=== PATIENT | male | born 1935 | race Caucasian/White ===

== ENCOUNTER 2019-10-17 03:08 | Inpatient (IN) ==
[2019-10-17] MEDS ORDERED: ASPIRIN CHEW 324 MG PO STA (03:36)
[2019-10-17] MEDS ORDERED: ASPIRIN CHEW 324 MG ONE (03:37)
[2019-10-17 03:47] LABS: Basophils # (auto) 0.01 K/uL (0-0.2); Basophils % (auto) 0.1 %; Eosinophils # (auto) 0.02 K/uL (0-0.5); Eosinophils % (auto) 0.2 %; Hematocrit (blood only) 44.4 % (42-52); Hemoglobin 14.7 g/dL (14.0-18.0); Immature Granulocytes # (auto) 0.02 K/uL (0.00-0.02); Immature Granulocytes % (auto) 0.2 %; Lymphocytes # (auto) 0.57 K/uL (1.2-3.4); Lymphocytes % (auto) 5.3 %; Mean Corpuscular Hemoglobin 29.5 pg (25-34); Mean Corpuscular Hgb Conc 33.1 g/dL (32-36); Monocytes # (auto) 0.31 K/uL (0.11-0.59); Monocytes % (auto) 2.9 %; Neutrophils # (auto) 9.87 K/uL (1.4-6.5); Neutrophils % (auto) 91.3 %; Platelet Count 186 K/uL (130-400); RDW Coefficient of Variation 13.4 % (11.5-14.5); RDW Standard Deviation 43.7 fL (36.4-46.3); Red Blood Count 4.99 M/uL (4.7-6.1)
[2019-10-17 03:58] LABS: Albumin Level 3.6 gm/dl (3.4-5.0); BUN Creatinine Ratio 22.1 (10-20); Calcium 8.7 mg/dl (8.5-10.1); Est GFR (African American) 62.3; Est GFR (Non-African American) 53.7; Potassium 3.9 mmol/L (3.5-5.1)
[2019-10-17 04:06] LABS: Bilirubin,Total 0.6 mg/dl (0.2-1); Globulin 3.6 gm/dl (2.5-4.0); Total Protein 7.2 gm/dl (6.4-8.2)
[2019-10-17 04:07] LABS: Troponin I 0.047 ng/ml (0-0.045)
[2019-10-17] MEDS ORDERED: HEPARIN SOD 5,000 UNIT/0.5 ML VIAL ONE (04:36)
[2019-10-17] MEDS: HEPARIN SODIUM/DEXTROSE 25,000 UNITS/500 ML BAG IV SCH (04:39)
[2019-10-17 04:40] LABS: INR 1.1 (0.9-1.1); Prothrombin Time 11.1 Seconds (9.0-12.0)
[2019-10-17] MEDS ORDERED: ONDANSETRON INJ 2 MG/ML 2 ML VIAL IV PRN (06:23)
[2019-10-17] MEDS ORDERED: ACETAMINOPHEN 325 MG TAB PO PRN (06:23)
[2019-10-17] MEDS ORDERED: NITROGLYCERIN SL 0.4 MG/TAB TAB SL PRN (06:23)
--- NOTE | 2019-10-17 06:26 | Emergency Department Note ---
Entered by Milli Ortega acting as a scribe for History of Present Illness General Chief complaint: Illness Stated complaint: ILLNESS Time Seen by Provider: 10/17/19 03:16 Source: patient History of Present Illness Provider complaint: weakness Onset (ago): hour(s) less than 1 Location: lower extremity Radiation: non-radiation Pain Consistency: + constant Exacerbated By: + movement Associated symptoms: + chest pain, + shortness of breath and + other (dizziness) The patient is an 83 y/o male who presents to the emergency department for evaluation of constant weakness prior to arrival. The patient told EMS that his legs hurt and were weak while lying in bed. He reported that when he got up to get some water his legs felt worse and he became dizzy. EMS also noted he had chest pressure and shortness of breath that resolved prior to their arrival. They note his O2 sat was 89% on room air. The patient states that the chest pain and shortness of breath were worse if he laid on his left side. He reports that he is feeling better now that he is at the ED but his legs still feel weak. He admits that he has had previous episodes of chest pain with the most recent being a few months ago. The patient denies abdominal pain, and any other symptoms. Home Medications Home Medications Medication Instructions Recorded Confirmed Type amlodipine 5 mg PO DAILY 10/17/19 10/17/19 History aspirin [Aspirin Childrens] 81 mg PO DAILY 10/17/19 10/17/19 History cholecalciferol (vitamin D3) 1,000 unit PO DAILY 10/17/19 10/17/19 History [Vitamin D3] finasteride 5 mg PO DAILY 10/17/19 10/17/19 History lisinopril 5 mg PO DAILY 10/17/19 10/17/19 History metoprolol tartrate 12.5 mg PO DAILY 10/17/19 10/17/19 History mirtazapine 30 mg PO HS 10/17/19 10/17/19 History omeprazole 20 mg PO DAILY 10/17/19 10/17/19 History rosuvastatin 20 mg PO DAILY 10/17/19 10/17/19 History Allergies Allergy/AdvReac Type Severity Reaction Status Date / Time No Known Allergies Allergy Verified 10/17/19 03:40 Past Med/Surg History Medical History Arm paresthesia, left (Acute) Chest pain (Acute) Precordial chest pain (Acute) Surgical History H/O heart bypass surgery Social History Feels Safe at Home: Yes Smoking Status: Never smoker Review of Systems See HPI for pertinent positives & negatives. and A total of 10 systems reviewed and were otherwise negative Physical Exam Vital Signs Vital Signs - 24 hr 10/17/19 03:21 10/17/19 03:39 10/17/19 03:46 Temperature 36.9 C Temperature Source Oral Pulse Rate 108 H 106 H Pulse Rate from SpO2 Sensor 104 H Respiratory Rate 19 24 Respiratory Effort / Characteristics Non-Labored Respiratory Depth Normal Blood Pressure 120/73 105/63 Blood Pressure Mean 88 71 Pulse Oximetry 92 92 93 Oxygen Delivery Method Nasal Cannula Room Air Oxygen Flow Rate 2 2 Sepsis Action Taken by Nursing No Action Required Oxygen Flow Rate - Titration 2 10/17/19 04:00 10/17/19 04:30 10/17/19 05:00 Temperature Temperature Source Pulse Rate 82 83 83 Pulse Rate from SpO2 Sensor 82 83 83 Respiratory Rate 24 24 24 Respiratory Effort / Characteristics Respiratory Depth Blood Pressure 104/65 106/65 103/66 Blood Pressure Mean 70 80 73 Pulse Oximetry 94 94 94 Oxygen Delivery Method Oxygen Flow Rate Sepsis Action Taken by Nursing Oxygen Flow Rate - Titration HEENT: Head - normocephalic and atraumatic Pupils are equal, round, and reactive to light. Extraocular eye muscles are intact, and sclera are anicteric. Nose - moist nasal mucosa without discharge. Mouth -dry buccal mucosa. Oropharynx is nonerythematous and there is no tonsillar exudate or edema noted. Neck: Supple; no JVD or cervical lymphadenopathy Heart: Regular rate and rhythm. There is a normal S1 and S2 with no murmurs, clicks, or gallops appreciated. Lungs: Clear to auscultation bilaterally with no wheezes, rales, or rhonchi. Abdomen: Soft, completely nontender, nondistended, with good bowel sounds. There are no palpable pulsatile masses or hepatosplenomegaly. There is no guarding, rigidity, or rebound noted. Extremities: No evidence of cyanosis, clubbing, or edema. There are easily palpable peripheral pulses. Skin: warm and dry with good turgor and no rashes. Course Course 0325: Past medical records reviewed. The patient was evaluated in room A03. A complete history and physical exam was performed. An IV lock was initiated and labs were drawn as above. A twelve-lead EKG was obtained as described above. An order was placed for continuous cardiac monitoring. The monitor shows a rate of 80 with normal sinus rhythm. 0336: I ordered Aspirin 324 mg PO. A portable chest x-ray was performed. 0412: I updated the patient and family on the results. I discussed the plan to admit with them. The patient states he is still chest pain-free. 0421: I ordered heparin bolus and drip 0419: [facility] He will evaluate for f urther management. Administered Medications Heparin Sodium/Dextrose (Heparin Sodium/Dextrose) 25,000 units in 500 mls @ 29 mls/hr IV .[id number] REPLACED BY [facility]; Protocol Stop: 11/16/19 04:29 Last Admin: 10/17/19 04:39 Dose: 1,450 units/hr, 29 mls/hr Documented by: [id number] Cosigned by: [id number] Discontinued Medications Aspirin (Aspirin) Confirm Administered Dose 324 mg .ROUTE .STK-MED ONE Stop: 10/17/19 03:38 Last Admin: 10/17/19 03:38 Dose: Not Given Documented by: [id number] Aspirin (Aspirin) 324 mg PO NOW STA Stop: 10/17/19 03:37 Last Admin: 10/17/19 03:38 Dose: 324 mg Documented by: [id number] Heparin Sodium (Porcine) (Heparin Sodium (Porcine)) Confirm Administered Dose 5,000 units .ROUTE .STK-MED ONE Stop: 10/17/19 04:37 Last Admin: 10/17/19 04:39 Dose: 5,000 units Documented by: [id number] Cosigned by: [id number] Heparin Sodium/Dextrose () 1 ea IV NOW STA; Protocol Stop: 10/17/19 04:22 Last Admin: 10/17/19 04:40 Dose: 1 ea Documented by: [id number] Critical Care Time Critical Care Time: Yes Total Critical Care Time: 45 I have personally spent greater than 45 minutes of critical care time in the direct management of this patient. This includes bedside care, interpretation of diagnostic studies, and testing, discussion with consultants, patient, and family members, and other required patient management activities. This 45 minutes is in excess of all separately billable procedures. Medical Decision Making Differential Diagnosis Differential Diagnoses: restless leg syndrome, acute coronary syndrome, STEMI, CHF, pneumonia. Medical Records Attestation: I reviewed the patient's medical records. Home Medications Current Medication List: was personally reviewed by me Laboratory Data Attestation: I reviewed the patient's lab results. Result diagrams: 10/17/19 03:20 10/17/19 03:20 Lab Results 10/17/19 10/17/19 10/17/19 Range/Units 03:20 03:20 03:20 WBC 10.80 (4.8-10.8) K/uL RBC 4.99 (4.7-6.1) M/uL Hgb 14.7 (14.0-18.0) g/dL Hct 44.4 (42-52) % MCV 89.0 (80-100) fL MCH 29.5 (25-34) pg MCHC 33.1 (32-36) g/dL RDW Std Deviation 43.7 (36.4-46.3) fL RDW Coeff of Joe 13.4 (11.5-14.5) % Plt Count 186 (130-400) K/uL MPV 10.0 (7.4-10.4) fL Immature Gran % (Auto) 0.2 % Neut % (Auto) 91.3 % Lymph % (Auto) 5.3 % Richardson % (Auto) 2.9 % Eos % (Auto) 0.2 % Baso % (Auto) 0.1 % Immature Gran # (Auto) 0.02 (0.00-0.02) K/uL Neut # (Auto) 9.87 H (1.4-6.5) K/uL Lymph # (Auto) 0.57 L (1.2-3.4) K/uL Richardson # (Auto) 0.31 (0.11-0.59) K/uL Eos # (Auto) 0.02 (0-0.5) K/uL Baso # (Auto) 0.01 (0-0.2) K/uL PT 11.1 (9.0-12.0) Seconds INR 1.1 (0.9-1.1) Sodium 140 (136-145) mmol/L Potassium 3.9 (3.5-5.1) mmol/L Chloride 109 H (98-107) mmol/L Carbon Dioxide 25 (21-32) mmol/L Anion Gap 6.0 (3-11) BUN 27 H (7-18) mg/dl Creatinine 1.22 (0.6-1.4) mg/dl Est Cr Clr Drug Dosing 50.0 ml/min Est GFR ( Amer) 62.3 Est GFR (Non-Af Amer) 53.7 BUN/Creatinine Ratio 22.1 H (10-20) Glucose 115 H (70-99) mg/dl Calcium 8.7 (8.5-10.1) mg/dl Total Bilirubin 0.6 (0.2-1) mg/dl AST 17 (15-37) U/L ALT 16 (12-78) U/L Alkaline Phosphatase 90 (45-117) U/L Troponin I 0.047 H* (0-0.045) ng/ml Total Protein 7.2 (6.4-8.2) gm/dl Albumin 3.6 (3.4-5.0) gm/dl Globulin 3.6 (2.5-4.0) gm/dl Albumin/Globulin Ratio 1.0 (0.9-2) Lipase 187 (73-393) U/L Specimen Hemolysis Imaging Data Attestation: I personally reviewed and interpreted this imaging study as f ollows: My Impression: Chest x-ray showed elevated left bay-diagram. Sternotomy wires in place. Moderate pulmonary vascular congestion. ECG Data Attestation: I personally reviewed and interpreted this ECG as follows: Indication: + chest pain, + SOB/dyspnea and + weakness Rate (beats per minute): 107 Rhythm: + sinus tachycardia ECG ST segments: + ST depression (signifcant in lateral lead, slightin inferior lead. ) Comparison ECG Date: from (04/26/16) Change: the following changes noted (ST depressions) Blood Pressure Blood Pressure Findings: Normal blood pressure MDM Narrative The patient is an 83 y/o male who presents to the emergency department for evaluation of constant weakness prior to arrival. The patient awoke with weakness and and pain in his legs but then developed substernal chest pressure and shortness of breath. EMS described that the patient did not appear well upon their initial exam of the patient. The patient's overall presentation seemed to improve in route to the hospital. He was symptom-free upon arrival here in the emergency department. The patient has significant EKG changes which were concerning for ischemia. He does have a positive troponin. The patient was started on a heparin bolus and drip. I discussed the case with the [facility] hospitalist and they will evaluate for further management. Impression & Plan Non-ST elevation OK (NSTEMI), Hypoxia Discharge Plan Visit Data Chief Complaint: Illness Stated Complaint: ILLNESS ED Provider: Mirella Taylor Discharge Problem: Non-ST elevation OK (NSTEMI), Hypoxia Patient Disposition: Being Evaluated by Hospitalist Discharge Instructions Interventions: ED Discharge Assessment Last Done: 10/17/19 05:44 The scribe's documentation has been prepared under my direction and personally reviewed by me in its entirety. I confirm that the note above accurately reflects all work, treatment, procedures, and medical decision making performed by me.
--- NOTE | 2019-10-17 06:34 | XRay Report ---
XR chest 1V portable CLINICAL HISTORY: Atypical chest pain COMPARISON STUDY: 04/26/2016 FINDINGS: The heart is borderline enlarged. There are postsurgical changes of a midline sternotomy. T here is chronic elevation of left hemidiaphragm. There are right lower lung zone airspace opacity hayde picious for pneumonia (asymmetric edema could appear similar). Clinical and radiographic follow-up is recommended.[ IMPRESSION: Interval development of right lower lung zone airspace opacity suspicious for pneumonia, although asymmetric edema could appear similar.. Clinical and radiographic follow-up is recommended. ACT 112: Negative or not required by law. Electronically signed by: Carlton Castro M.D. 10/17/2019 6:33 AM
[2019-10-17 07:09] LABS: Estimated Average Glucose 131 mg/dl; Hemoglobin A1C 6.2 % (4.5-5.6)
--- NOTE | 2019-10-17 08:15 | History and Physical Report ---
DATE OF ADMISSION: 10/17/2019 CHIEF COMPLAINT: Chest pain. HISTORY OF PRESENT ILLNESS: This 83-year-old male with past medical history significant for CAD, status post CABG about 16 years ago, history of hyperlipidemia, hypertension, GERD, history of urethral stricture, history of retention of urine, history of anxiety, presents with chest pain. The patient lives with , complained of chest pain yesterday in the evening around 7 o'clock, but did not do anything, but in the middle of the night, he woke up to go into the bathroom and came in had pain in both legs which is chronic pain, but then he developed chest pain, and was some shortness of breath. He called his and brought him to the hospital. Here, EKG shows ST depression in anterolateral leads and mild elevation of troponin. Received aspirin and started on IV heparin. Currently, pain is resolved. Resting comfortably, very hard of hearing. Denies any sweating, felt somewhat hot in the ER, he is drinking water to help him to cool. Denies any headache. He says that he feels dizzy when he gets up from the bed. No cough, no fevers, no nausea, no abdominal pain. Normal bowel and bladder movements. No swelling in the legs, no rash. Currently resting comfortably and hemodynamically stable. Family in the room. ALLERGIES: No known drug allergies. PAST MEDICAL HISTORY: As mentioned above. PAST SURGICAL HISTORY: CABG, cystoscopy, cystolithotripsy, resection of the hip socket, removal of bladder stone. MEDICATIONS: The patient is on amlodipine 5 mg p.o. daily, Proscar 5 mg p.o. daily, lisinopril 5 mg p.o. daily, Lopressor 12.5 mg p.o. daily, Remeron 30 mg p.o. at bedtime, omeprazole 20 mg p.o. daily, Crestor 20 mg p.o. daily, aspirin enteric coated 81 mg p.o. daily, vitamin D 1000 units p.o. daily. FAMILY HISTORY: Significant for mother had cancer. Father of heart disorder at age of 84. SOCIAL HISTORY: and lives with his . No smoking, no alcohol, no drug use. REVIEW OF SYMPTOMS: As per HPI. Rest of review of systems negative. PHYSICAL EXAMINATION: GENERAL: The patient is old and frail, not in acute distress. Hard of hearing. VITAL SIGNS: Temperature 36.9, pulse 83, respiratory rate 24, blood pressure 103/66, oxygen 94% on room air. HEENT: No pallor. Pupils equal, round, reactive to light. NECK: No JVD, no neck masses, no carotid bruits. CARDIOVASCULAR: S1, S2, regular rate and rhythm, no murmur, no gallop. RESPIRATORY SYSTEM: Normal AP diameter. No accessory muscle use. No wheezing, no crackles. ABDOMEN: Soft, bowel sounds present, nontender. No distention. CENTRAL NERVOUS SYSTEM: Alert and awake and oriented. Hard of hearing. Moves extremities. Obeys simple commands. EXTREMITIES: No edema, no erythema. LABORATORY DATA: WBC 10.8, hemoglobin 14.7, hematocrit 44.4, platelets 186. PT 11.1, INR 1.1. Sodium 140, potassium 3.9, chloride 109, bicarbonate 25, BUN 27, creatinine 1.2, serum glucose 115, calcium 8.7, total bilirubin 0.6, AST 17, ALT 16, alkaline phosphatase 90. Troponin I 0.047. Chest x-ray, elevated left diaphragm. ASSESSMENT AND PLAN: This 83-year-old male who presents with chest pain. EKG: Shows sinus tachycardia, rate of 107, ST depression in the anterolateral leads. ASSESSMENT AND PLAN: This is an 83-year-old male who presents with chest pain and found to have EKG changes and mild elevation in troponin. 1. Chest pain, non-ST elevated myocardial infarction, ST depression in anterolateral leads. Troponin 0.047, history of coronary artery disease, status post coronary artery bypass grafting, started on IV heparin in the ER which we will continue. Currently chest pain free. Received a full dose aspirin in the ER. Follow serial cardiac enzymes and echocardiogram. We will keep him n.p.o. Consult cardiology.Possible cardiac catheterization. 2. Coronary artery disease, status post coronary artery bypass grafting about 16yrs ago.. Continue home aspirin, statin and patient is currently on Lopressor 12.5 mg p.o. daily at home. We will make it b.i.d. dose and monitor closely. 3. History of hypertension, on lisinopril and metoprolol, which was increased to b.i.d. dose and amlodipine. We will monitor blood pressure. 4. History of urinary stricture and urinary retention, on Proscar. We will monitor any urinary retention with bladder scans. 5. Gastroesophageal reflux disease, on PPI. 6. Anxiety, on Remeron. 7. Questionable hyperglycemia, glucose 115 here and we will follow HbA1c levels. 8. Deep venous thrombosis prophylaxis, on IV heparin. DISPOSITION: Monitor in tele floor. Level 1 full code. MTDD
[2019-10-17] MEDS: ASPIRIN 81 MG ECTAB PO SCH (08:25)
[2019-10-17] MEDS: ROSUVASTATIN CALCIUM 20 MG TAB PO SCH (08:25)
[2019-10-17] MEDS: PANTOprazole 40 MG TAB PO SCH (08:25)
[2019-10-17] MEDS: FINASTERIDE 5 MG TAB PO SCH (08:25)
[2019-10-17] MEDS: METOPROLOL TARTRATE 25 MG TAB PO SCH ×2 (08:26→20:33)
[2019-10-17] MEDS: CHOLECALCIFEROL 1,000 UNITS TAB PO SCH (08:26)
[2019-10-17] MEDS: AMLODIPINE BESYLATE 5 MG TAB PO SCH (08:26)
[2019-10-17] MEDS ORDERED: PNEUMOCOCCAL Polysaccharide Vaccine 25mcg/0.5mL vial/Syr IM ONE (08:30)
[2019-10-17] MEDS: lisinopriL 5 MG TAB PO SCH (08:52)
[2019-10-17 10:43] LABS: Partial Thromboplastin Ratio > 5.1
[2019-10-17 11:08] LABS: Partial Thromboplastin Time > 139.0 Seconds (21.0-31.0)
--- NOTE | 2019-10-17 12:06 | Cardiology Consultation ---
Date of Consultation October 17, 2019 Supervising Physician Co-Signing Physician Notes Patient seen and examined with Do Matthew PA-C. Agree with findings and assessment as above. Currently states he is feeling better after receiving IV fluids. I do not see any possible ischemic causes to his minimal troponin elevation. If anything there is RV strain secondary to the active pneumonia process. No further cardiac testing or intervention is necessary at this time. Recommend treating the underlying pneumonia. General: Awake, alert and oriented x 3. No acute distress. HEENT: Normocephalic, atraumatic. Pupils equal, round and reactive to light and accommodation. Extraocular muscles are intact. Anicteric sclera. Moist mucous membranes. Neck: No JVD. No bruit. Cardiovascular: Regular. Positive S-4. Normal S-1 and S-2. No S-3. No murmurs or rubs. Pulmonary: Clear to auscultation B/L. No rales, rhonchi or wheezing Abdomen: Bowel sounds x 4, soft. No rebound, guarding or tenderness. No organomegaly. Extremities: No clubbing, cyanosis or edema. +2 pedal pulses bilaterally. Skin: Warm and dry. History of Present Illness Attending Physician: Obie Bailey MD Allergies Allergy/AdvReac Type Severity Reaction Status Date / Time No Known Allergies Allergy Verified 10/17/19 03:40 Home Medications Home Medications Medication Instructions Recorded Confirmed Type amlodipine 5 mg PO DAILY 10/17/19 10/17/19 History aspirin [Aspirin Childrens] 81 mg PO DAILY 10/17/19 10/17/19 History cholecalciferol (vitamin D3) 1,000 unit PO DAILY 10/17/19 10/17/19 History [Vitamin D3] finasteride 5 mg PO DAILY 10/17/19 10/17/19 History lisinopril 5 mg PO DAILY 10/17/19 10/17/19 History metoprolol tartrate 12.5 mg PO DAILY 10/17/19 10/17/19 History mirtazapine 30 mg PO HS 10/17/19 10/17/19 History omeprazole 20 mg PO DAILY 10/17/19 10/17/19 History rosuvastatin 20 mg PO DAILY 10/17/19 10/17/19 History Patient History Medical History Arm paresthesia, left (Acute) Chest pain (Acute) Precordial chest pain (Acute) Surgical History H/O heart bypass surgery Social History Preferred Language: Czech Communication Ability: Effective Gel Coat Sprayer Required: No Beliefs That Will Affect Care: None Current Living Situation: Spouse Other Information That Helps Us Care for You: No Feels Safe at Home: Yes Safety Concerns: Feels Safe At This Time Smoking Status: Former smoker Hx Alcohol Use: No Hx Substance Use: No Results & Data Vital Signs (Past 12 Hours) Vital Signs Temp Pulse Pulse Resp BP BP Pulse Ox 10/17/19 09:05 75 31 H 114/68 97 10/17/19 09:00 73 28 H 96 10/17/19 08:30 75 22 96 10/17/19 08:17 69 20 97/55 L 94 10/17/19 08:05 71 20 102/63 96 10/17/19 08:00 36.6 C 72 72 22 99/56 L 95 10/17/19 07:30 75 22 92 10/17/19 07:29 76 22 99/56 L 90 10/17/19 07:27 74 24 91/52 L 93 10/17/19 07:26 76 22 87/54 L 92 10/17/19 07:25 75 20 75/54 L 92 10/17/19 07:05 77 24 89/57 L 92 10/17/19 07:00 77 22 91 10/17/19 06:30 78 17 96 10/17/19 06:27 36.7 C 84 16 124/59 L 98 10/17/19 06:05 83 17 124/59 L 10/17/19 06:00 17 10/17/19 05:31 75 22 95 10/17/19 05:30 77 22 90/47 L 94 10/17/19 05:00 83 24 103/66 94 10/17/19 04:30 83 24 106/65 94 10/17/19 04:00 82 24 104/65 94 10/17/19 03:46 106 H 24 105/63 93 10/17/19 03:39 92 10/17/19 03:21 36.9 C 108 H 19 120/73 92
[2019-10-17 13:11] LABS: Partial Thromboplastin Time 107.6 Seconds (21.0-31.0)
[2019-10-17 14:36] LABS: Partial Thromboplastin Ratio 2.1
--- NOTE | 2019-10-17 14:48 | Cardiology Consultation ---
Date of Consultation October 17, 2019 Assessment & Plan (1) Lower respiratory tract infection: Evidence of probable pneumonia on chest xray Correlates with chlls/fever last n ight ongoign cough/hweeze noted tody on exam Recommend treatment per hospitalist (2) Non-ST elevation ND (NSTEMI): Likely demand ischemia in setting of respiratory illness. Currently has no chest pain. Stop heparin EKG changes have resolved. Continue home medications Conservative therapies recommended for underlying CAD s/p remote CABG. Case discussed with Dr. Gautam (3) H/O heart bypass surgery: Supervising Physician Co-Signing Physician Notes Patient seen and examined with Do Matthew PA-C. Agree with findings and assessment as above. Currently states he is feeling better after receiving IV fluids. I do not see any possible ischemic causes to his minimal troponin elevation. If anything there is RV strain secondary to the active pneumonia process. No further cardiac testing or intervention is necessary at this time. Recommend treating the underlying pneumonia. General: Awake, alert and oriented x 3. No acute distress. HEENT: Normocephalic, atraumatic. Pupils equal, round and reactive to light and accommodation. Extraocular muscles are intact. Anicteric sclera. Moist mucous membranes. Neck: No JVD. No bruit. Cardiovascular: Regular. Positive S-4. Normal S-1 and S-2. No S-3. No murmurs or rubs. Pulmonary: Clear to auscultation B/L. No rales, rhonchi or wheezing Abdomen: Bowel sounds x 4, soft. No rebound, guarding or tenderness. No organomegaly. Extremities: No clubbing, cyanosis or edema. +2 pedal pulses bilaterally. Skin: Warm and dry. History of Present Illness Reason for Consultation: elevated troponin; abnormal EKG Requesting Physician: Dr. Bailey Attending Physician: Dr. Gautam History of Present Illness patient is an 83-year-old male known to [facility], following with Dr. Liang for history of coronary artery disease status post remote CABG in 2003, hypertension, dyslipidemia. Earlier this year patient reported worsening shortness of breath with exertion. He was started on low-dose isosorbide but felt no significant interval improvement and stopped medication. Conservative therapies recommended in preferred by the patient. No stress testing or imaging studies completed at that time. Patient states he was in usual state of health until last evening when he awoke with a coughing fit, "shakes and chills", and chest tightness. 911 was summoned. On arrival to ER, EKG demonstrated mild ST/T wave depression in anterolateral leads. He was chest pain free at that time. Initial troponin borderline elevated and started on IV ehparin. Chest xray concerning for right sided early pneumonia/infiltrate. He was admitted for further treatment and evaluation. At time of consult, patient resting in bed comfortably. He denies chest pains since admission. He notes shortness of breath and cough this morning. Audible wheezing noted. no recurrent fever chills reported by patient. No orthopnea, PND, lower extremity edema. Allergies Allergy/AdvReac Type Severity Reaction Status Date / Time No Known Allergies Allergy Verified 10/17/19 03:40 Home Medications Home Medications Medication Instructions Recorded Confirmed Type amlodipine 5 mg PO DAILY 10/17/19 10/17/19 History aspirin [Aspirin Childrens] 81 mg PO DAILY 10/17/19 10/17/19 History cholecalciferol (vitamin D3) 1,000 unit PO DAILY 10/17/19 10/17/19 History [Vitamin D3] finasteride 5 mg PO DAILY 10/17/19 10/17/19 History lisinopril 5 mg PO DAILY 10/17/19 10/17/19 History metoprolol tartrate 12.5 mg PO DAILY 10/17/19 10/17/19 History mirtazapine 30 mg PO HS 10/17/19 10/17/19 History omeprazole 20 mg PO DAILY 10/17/19 10/17/19 History rosuvastatin 20 mg PO DAILY 10/17/19 10/17/19 History Patient History Medical History Arm paresthesia, left (Acute) Chest pain (Acute) Precordial chest pain (Acute) Surgical History H/O heart bypass surgery Social History Preferred Language: Nigerian Communication Ability: Effective Lactation Specialist Required: No Beliefs That Will Affect Care: None Current Living Situation: Spouse Other Information That Helps Us Care for You: No Feels Safe at Home: Yes Safety Concerns: Feels Safe At This Time Smoking Status: Former smoker Hx Alcohol Use: No Hx Substance Use: No Physical Exam Constitutional: WD/WN, vitals as above no acute distress Respiratory: Auscultation: + wheezes (diffuse, b/l); no crackles Cardiovascular: RRR, no murmur, no edema Gastrointestinal (Abdomen): normal bowel sounds, soft, nontender, no hepatosplenomegaly Neurologic: PERRL, EOMI, accommodation nl, no face palsy, no dysarthria Results & Data Vital Signs (Past 12 Hours) Vital Signs Temp Pulse Pulse Resp BP BP Pulse Ox 10/17/19 13:05 68 23 99/57 L 93 10/17/19 13:00 70 20 94 10/17/19 12:05 64 20 98/59 L 96 10/17/19 12:00 66 20 96 10/17/19 11:05 70 22 104/58 L 93 10/17/19 11:00 69 22 94 10/17/19 10:05 83 20 98/58 L 95 10/17/19 10:00 74 22 95 10/17/19 09:05 75 31 H 114/68 97 10/17/19 09:00 73 28 H 96 10/17/19 08:30 75 22 96 10/17/19 08:17 69 20 97/55 L 94 10/17/19 08:05 71 20 102/63 96 10/17/19 08:00 36.6 C 72 72 22 99/56 L 95 10/17/19 07:30 75 22 92 10/17/19 07:29 76 22 99/56 L 90 10/17/19 07:27 74 24 91/52 L 93 10/17/19 07:26 76 22 87/54 L 92 10/17/19 07:25 75 20 75/54 L 92 10/17/19 07:05 77 24 89/57 L 92 10/17/19 07:00 77 22 91 10/17/19 06:30 78 17 96 10/17/19 06:27 36.7 C 84 16 124/59 L 98 10/17/19 06:05 83 17 124/59 L 10/17/19 06:00 17 10/17/19 05:31 75 22 95 10/17/19 05:30 77 22 90/47 L 94 10/17/19 05:00 83 24 103/66 94 10/17/19 04:30 83 24 106/65 94 10/17/19 04:00 82 24 104/65 94 10/17/19 03:46 106 H 24 105/63 93 10/17/19 03:39 92 10/17/19 03:21 36.9 C 108 H 19 120/73 92 Laboratory Results 10/17/19 10/17/19 10/17/19 Range/Units 14:01 12:09 12:09 WBC (4.8-10.8) K/uL RBC (4.7-6.1) M/uL Hgb (14.0-18.0) g/dL Hct (42-52) % MCV (80-100) fL MCH (25-34) pg MCHC (32-36) g/dL RDW Std Deviation (36.4-46.3) fL RDW Coeff of Joe (11.5-14.5) % Plt Count (130-400) K/uL MPV (7.4-10.4) fL Immature Gran % (Auto) % Neut % (Auto) % Lymph % (Auto) % [place] % (Auto) % Eos % (Auto) % Baso % (Auto) % Immature Gran # (Auto) (0.00-0.02) K/uL Neut # (Auto) (1.4-6.5) K/uL Lymph # (Auto) (1.2-3.4) K/uL [place] # (Auto) (0.11-0.59) K/uL Eos # (Auto) (0-0.5) K/uL Baso # (Auto) (0-0.2) K/uL PT (9.0-12.0) Seconds INR (0.9-1.1) APTT 56.0 H* 107.6 H* (21.0-31.0) Seconds PTT Ratio 2.1 4.0 Sodium (136-145) mmol/L Potassium (3.5-5.1) mmol/L Chloride (98-107) mmol/L Carbon Dioxide (21-32) mmol/L Anion Gap (3-11) BUN (7-18) mg/dl Creatinine (0.6-1.4) mg/dl Est Cr Clr Drug Dosing ml/min Est GFR ( Amer) Est GFR (Non-Af Amer) BUN/Creatinine Ratio (10-20) Glucose (70-99) mg/dl Estimat Average Glucose mg/dl Hemoglobin A1c (4.5-5.6) % Calcium (8.5-10.1) mg/dl Total Bilirubin (0.2-1) mg/dl AST (15-37) U/L ALT (12-78) U/L Alkaline Phosphatase (45-117) U/L Troponin I 0.166 H* (0-0.045) ng/ml Total Protein (6.4-8.2) gm/dl Albumin (3.4-5.0) gm/dl Globulin (2.5-4.0) gm/dl Albumin/Globulin Ratio (0.9-2) Lipase (73-393) U/L Specimen Hemolysis Nasal Screen MRSA (PCR) (Negative) 10/17/19 10/17/19 10/17/19 Range/Units 10:17 06:40 06:38 WBC (4.8-10.8) K/uL RBC (4.7-6.1) M/uL Hgb (14.0-18.0) g/dL Hct (42-52) % MCV (80-100) fL MCH (25-34) pg MCHC (32-36) g/dL RDW Std Deviation (36.4-46.3) fL RDW Coeff of Joe (11.5-14.5) % Plt Count (130-400) K/uL MPV (7.4-10.4) fL Immature Gran % (Auto) % Neut % (Auto) % Lymph % (Auto) % [place] % (Auto) % Eos % (Auto) % Baso % (Auto) % Immature Gran # (Auto) (0.00-0.02) K/uL Neut # (Auto) (1.4-6.5) K/uL Lymph # (Auto) (1.2-3.4) K/uL [place] # (Auto) (0.11-0.59) K/uL Eos # (Auto) (0-0.5) K/uL Baso # (Auto) (0-0.2) K/uL PT (9.0-12.0) Seconds INR (0.9-1.1) APTT > 139.0 H* (21.0-31.0) Seconds PTT Ratio > 5.1 Sodium (136-145) mmol/L Potassium (3.5-5.1) mmol/L Chloride (98-107) mmol/L Carbon Dioxide (21-32) mmol/L Anion Gap (3-11) BUN (7-18) mg/dl Creatinine (0.6-1.4) mg/dl Est Cr Clr Drug Dosing ml/min Est GFR ( Amer) Est GFR (Non-Af Amer) BUN/Creatinine Ratio (10-20) Glucose (70-99) mg/dl Estimat Average Glucose mg/dl Hemoglobin A1c (4.5-5.6) % Calcium (8.5-10.1) mg/dl Total Bilirubin (0.2-1) mg/dl AST (15-37) U/L ALT (12-78) U/L Alkaline Phosphatase (45-117) U/L Troponin I 0.126 H* (0-0.045) ng/ml Total Protein (6.4-8.2) gm/dl Albumin (3.4-5.0) gm/dl Globulin (2.5-4.0) gm/dl Albumin/Globulin Ratio (0.9-2) Lipase (73-393) U/L Specimen Hemolysis Nasal Screen MRSA (PCR) Negative (Negative) 10/17/19 10/17/19 10/17/19 Range/Units 06:38 03:20 03:20 WBC (4.8-10.8) K/uL RBC (4.7-6.1) M/uL Hgb (14.0-18.0) g/dL Hct (42-52) % MCV (80-100) fL MCH (25-34) pg MCHC (32-36) g/dL RDW Std Deviation (36.4-46.3) fL RDW Coeff of Joe (11.5-14.5) % Plt Count (130-400) K/uL MPV (7.4-10.4) fL Immature Gran % (Auto) % Neut % (Auto) % Lymph % (Auto) % [place] % (Auto) % Eos % (Auto) % Baso % (Auto) % Immature Gran # (Auto) (0.00-0.02) K/uL Neut # (Auto) (1.4-6.5) K/uL Lymph # (Auto) (1.2-3.4) K/uL [place] # (Auto) (0.11-0.59) K/uL Eos # (Auto) (0-0.5) K/uL Baso # (Auto) (0-0.2) K/uL PT 11.1 (9.0-12.0) Seconds INR 1.1 (0.9-1.1) APTT (21.0-31.0) Seconds PTT Ratio Sodium 140 (136-145) mmol/L Potassium 3.9 (3.5-5.1) mmol/L Chloride 109 H (98-107) mmol/L Carbon Dioxide 25 (21-32) mmol/L Anion Gap 6.0 (3-11) BUN 27 H (7-18) mg/dl Creatinine 1.22 (0.6-1.4) mg/dl Est Cr Clr Drug Dosing 50.0 ml/min Est GFR ( Amer) 62.3 Est GFR (Non-Af Amer) 53.7 BUN/Creatinine Ratio 22.1 H (10-20) Glucose 115 H (70-99) mg/dl Estimat Average Glucose 131 mg/dl Hemoglobin A1c 6.2 H (4.5-5.6) % Calcium 8.7 (8.5-10.1) mg/dl Total Bilirubin 0.6 (0.2-1) mg/dl AST 17 (15-37) U/L ALT 16 (12-78) U/L Alkaline Phosphatase 90 (45-117) U/L Troponin I 0.047 H* (0-0.045) ng/ml Total Protein 7.2 (6.4-8.2) gm/dl Albumin 3.6 (3.4-5.0) gm/dl Globulin 3.6 (2.5-4.0) gm/dl Albumin/Globulin Ratio 1.0 (0.9-2) Lipase 187 (73-393) U/L Specimen Hemolysis Nasal Screen MRSA (PCR) (Negative) 10/17/19 Range/Units 03:20 WBC 10.80 (4.8-10.8) K/uL RBC 4.99 (4.7-6.1) M/uL Hgb 14.7 (14.0-18.0) g/dL Hct 44.4 (42-52) % MCV 89.0 (80-100) fL MCH 29.5 (25-34) pg MCHC 33.1 (32-36) g/dL RDW Std Deviation 43.7 (36.4-46.3) fL RDW Coeff of Joe 13.4 (11.5-14.5) % Plt Count 186 (130-400) K/uL MPV 10.0 (7.4-10.4) fL Immature Gran % (Auto) 0.2 % Neut % (Auto) 91.3 % Lymph % (Auto) 5.3 % [place] % (Auto) 2.9 % Eos % (Auto) 0.2 % Baso % (Auto) 0.1 % Immature Gran # (Auto) 0.02 (0.00-0.02) K/uL Neut # (Auto) 9.87 H (1.4-6.5) K/uL Lymph # (Auto) 0.57 L (1.2-3.4) K/uL [place] # (Auto) 0.31 (0.11-0.59) K/uL Eos # (Auto) 0.02 (0-0.5) K/uL Baso # (Auto) 0.01 (0-0.2) K/uL PT (9.0-12.0) Seconds INR (0.9-1.1) APTT (21.0-31.0) Seconds PTT Ratio Sodium (136-145) mmol/L Potassium (3.5-5.1) mmol/L Chloride (98-107) mmol/L Carbon Dioxide (21-32) mmol/L Anion Gap (3-11) BUN (7-18) mg/dl Creatinine (0.6-1.4) mg/dl Est Cr Clr Drug Dosing ml/min Est GFR ( Amer) Est GFR (Non-Af Amer) BUN/Creatinine Ratio (10-20) Glucose (70-99) mg/dl Estimat Average Glucose mg/dl Hemoglobin A1c (4.5-5.6) % Calcium (8.5-10.1) mg/dl Total Bilirubin (0.2-1) mg/dl AST (15-37) U/L ALT (12-78) U/L Alkaline Phosphatase (45-117) U/L Troponin I (0-0.045) ng/ml Total Protein (6.4-8.2) gm/dl Albumin (3.4-5.0) gm/dl Globulin (2.5-4.0) gm/dl Albumin/Globulin Ratio (0.9-2) Lipase (73-393) U/L Specimen Hemolysis Nasal Screen MRSA (PCR) (Negative) Diagnostic Findings EKG on admission: NSR with mild ST/T wave depression in anterolateral leads Repeat EKG this Morning: Sinus rhythm with short DE with Premature atrial complexes Otherwise normal ECG Premature atrial complexes are now Present Vent. rate has decreased BY [address] no longer depressed in Anterior leads Nonspecific T wave abnormality no longer evident in Inferior leads Chest xray report reviewed: IMPRESSION: Interval development of right lower lung zone airspace opacity suspicious for pneumonia, although asymmetric edema could appear similar.. Clinical and radiographic follow-up is recommended.
[2019-10-17] MEDS: MIRTAZAPINE TAB 15 MG TAB PO SCH (20:34)
[2019-10-17 21:17] LABS: Partial Thromboplastin Ratio 3.2
[2019-10-17 21:36] LABS: Partial Thromboplastin Time 87.4 Seconds (21.0-31.0)
[2019-10-18] MEDS: HEPARIN SODIUM/DEXTROSE 25,000 UNITS/500 ML BAG IV SCH (02:23)
[2019-10-18 03:48] LABS: Basophils # (auto) 0.02 K/uL (0-0.2); Basophils % (auto) 0.1 %; Eosinophils # (auto) 0.21 K/uL (0-0.5); Eosinophils % (auto) 1.3 %; Hematocrit (blood only) 36.6 % (42-52); Hemoglobin 12.1 g/dL (14.0-18.0); Immature Granulocytes # (auto) 0.06 K/uL (0.00-0.02); Immature Granulocytes % (auto) 0.4 %; Lymphocytes # (auto) 1.89 K/uL (1.2-3.4); Lymphocytes % (auto) 11.7 %; Mean Corpuscular Hemoglobin 29.4 pg (25-34); Mean Corpuscular Hgb Conc 33.1 g/dL (32-36); Mean Corpuscular Volume 89.1 fL (80-100); Mean Platelet Volume 9.6 fL (7.4-10.4); Monocytes % (auto) 6.2 %; Neutrophils # (auto) 12.92 K/uL (1.4-6.5); Neutrophils % (auto) 80.3 %; Platelet Count 154 K/uL (130-400); RDW Coefficient of Variation 13.5 % (11.5-14.5); RDW Standard Deviation 44.4 fL (36.4-46.3); Red Blood Count 4.11 M/uL (4.7-6.1)
[2019-10-18 04:05] LABS: BUN Creatinine Ratio 26.6 (10-20); Calcium 8.3 mg/dl (8.5-10.1); Creatinine Clr Calc Pharmacy 48.1 ml/min; Est GFR (African American) 59.3; Est GFR (Non-African American) 51.2; Magnesium 1.8 mg/dl (1.8-2.4); Potassium 3.9 mmol/L (3.5-5.1)
[2019-10-18 04:08] LABS: Partial Thromboplastin Ratio 3.1
[2019-10-18 04:34] LABS: Partial Thromboplastin Time 83.5 Seconds (21.0-31.0)
[2019-10-18] MEDS: PANTOprazole 40 MG TAB PO SCH (08:43)
[2019-10-18] MEDS: ROSUVASTATIN CALCIUM 20 MG TAB PO SCH (08:43)
[2019-10-18] MEDS: ASPIRIN 81 MG ECTAB PO SCH (08:43)
[2019-10-18] MEDS: AMLODIPINE BESYLATE 5 MG TAB PO SCH (08:43)
[2019-10-18] MEDS: lisinopriL 5 MG TAB PO SCH (08:43)
[2019-10-18] MEDS: CHOLECALCIFEROL 1,000 UNITS TAB PO SCH (08:43)
[2019-10-18] MEDS: FINASTERIDE 5 MG TAB PO SCH (08:43)
[2019-10-18] MEDS: METOPROLOL TARTRATE 25 MG TAB PO SCH ×2 (08:43→21:05)
[2019-10-18] MEDS: cefTRIAXone SODIUM 2,000 MG in DEXTROSE 5% 50 ML IV SCH (09:32)
[2019-10-18] MEDS: DOXYCYCLINE HYCLATE 100 MG in DEXTROSE 5% 100 ML IV SCH ×2 (10:17→21:05)
--- NOTE | 2019-10-18 14:13 | Hospitalist Progress Note ---
Date of Service October 18, 2019 Assessment & Plan (1) Pneumonia: Admitted with cough and chest pain Chest x-ray showed right lower lobe infiltration with increasing white count Blood culture has been taken Started on intravenous ceftriaxone and doxycycline Clinically better Present on Admission?: Yes (2) Non-ST elevation NV (NSTEMI): Noted to have increasing troponin Echocardiogram showed-normal LV chamber size with mild concentric LVH, sigmoid appearing septum. Normal LV function with EF of 60- 65%, moderate hypokinesis of the basal inferior wall associated with thinning to suggest chronicity, grade 1 diastolic dysfunction, mild AR mild TR and mild MR with severe L A enlargement Troponin level has been decreasing Patient remains asymptomatic Appreciate cardiology input and recommendation Present on Admission?: Yes (3) H/O heart bypass surgery: As above Continue current medications for high blood pressure Subjective 10/18 Patient was seen and examined in ICU This 83-year-old male with past medical history significant for CAD, status post CABG about 16 years ago, history of hyperlipidemia, hypertension, GERD, history of urethral stricture, history of retention of urine, history of anxiety, presents with chest pain. He has been feeling a lot better since admission Complaints of cough and shortness of breath on exertion but no chest pain Review of Systems Review of Systems: All systems reviewed and are unremarkable except as noted below Respiratory: + cough and + dyspnea on exertion Cardiovascular: no chest pain and no palpitations Physical Exam Physical Exam: Lying in bed comfortably Constitutional: well developed and well nourished Eyes: PERRL, conjunctivae normal, anicteric sclerae ENMT: external ear and nose normal, oropharynx normal Neck: trachea midline, no thyromegaly Respiratory: normal respiratory effort; no respiratory distress Auscultation: + diminished lung sounds (Right lung with crackles at the base) Cardiovascular: Rate/Rhythm: regular rate and regular rhythm Heart Sounds: no murmur Gastrointestinal (Abdomen): Inspection/Auscultation: abdomen normal to inspection and normal bowel sounds; abdomen not distended Musculoskeletal: No acute arthritis in any joints Lymphatic: no cervical or axillary lymphadenopathy Results & Data Vital Signs (Past 12 Hours) Vital Signs Temp Pulse Resp BP BP Pulse Ox 10/18/19 11:28 36.9 C 61 18 117/55 L 93 10/18/19 07:22 36.7 C 60 18 116/51 L 92 10/18/19 04:00 36.6 C 65 24 113/59 L 93 Laboratory Results Short CBC 10/18/19 Range/Units 03:37 WBC 16.10 H (4.8-10.8) K/uL Hgb 12.1 L (14.0-18.0) g/dL Hct 36.6 L (42-52) % Plt Count 154 (130-400) K/uL BMP 10/18/19 03:37 Sodium 137 Potassium 3.9 Chloride 105 Carbon Dioxide 28 BUN 34 H Creatinine 1.27 Glucose 118 H Calcium 8.3 L Cardiac Enzymes 10/17/19 Range/Units 20:12 Troponin I 0.106 H* (0-0.045) ng/ml Medications Administered Current Inpatient Medications Acetaminophen (Tylenol) 650 mg PO Q4H PRN PRN Reason: Pain or Fever Stop: 11/16/19 06:22 Amlodipine Besylate (Norvasc) 5 mg PO DAILY [facility] Stop: 11/16/19 08:59 Last Admin: 10/18/19 08:43 Dose: 5 mg Documented by: Aspirin (Ecotrin Ectab) 81 mg PO DAILY [facility] Stop: 11/16/19 08:59 Last Admin: 10/18/19 08:43 Dose: 81 mg Documented by: Finasteride (Proscar) 5 mg PO DAILY [facility] Stop: 11/16/19 08:59 Last Admin: 10/18/19 08:43 Dose: 5 mg Documented by: Ceftriaxone Sodium 2,000 mg/ (Dextrose) 70 mls @ 100 mls/hr IV Q24H [facility]; Protocol Stop: 10/24/19 09:41 Last Infusion: 10/18/19 10:16 Dose: Infused Documented by: Doxycycline Hyclate 100 mg/ (Dextrose) 110 mls @ 50 mls/hr IV Q12H [facility] Stop: 10/25/19 09:59 Last Infusion: 10/18/19 14:03 Dose: Infused Documented by: Lisinopril (Zestril) 5 mg PO DAILY [facility] Stop: 11/16/19 08:59 Last Admin: 10/18/19 08:43 Dose: 5 mg Documented by: Metoprolol Tartrate (Lopressor) 12.5 mg PO BID [facility] Stop: 11/16/19 08:59 Last Admin: 10/18/19 08:43 Dose: 12.5 mg Documented by: Mirtazapine (Remeron) 30 mg PO HS [facility] Stop: 11/16/19 20:59 Last Admin: 10/17/19 20:34 Dose: 30 mg Documented by: Nitroglycerin (Nitrostat) 0.4 mg SL UD PRN PRN Reason: Chest Pain Stop: 11/16/19 06:22 Ondansetron HCl (Zofran) 4 mg IV Q6H PRN PRN Reason: Nausea Stop: 11/16/19 06:22 Pantoprazole Sodium (Protonix) 40 mg PO DAILY [facility] Stop: 11/16/19 08:59 Last Admin: 10/18/19 08:43 Dose: 40 mg Documented by: Rosuvastatin Calcium (Crestor) 20 mg PO DAILY [facility] Stop: 11/16/19 08:59 Last Admin: 10/18/19 08:43 Dose: 20 mg Documented by: Vitamin D (Vitamin D3) 1,000 units PO DAILY [facility] Stop: 11/16/19 08:59 Last Admin: 10/18/19 08:43 Dose: 1,000 units Documented by:
[2019-10-18] MEDS: MIRTAZAPINE TAB 15 MG TAB PO SCH (21:05)
[2019-10-19] MEDS: cefTRIAXone SODIUM 2,000 MG in DEXTROSE 5% 50 ML IV SCH (08:13)
[2019-10-19] MEDS: CHOLECALCIFEROL 1,000 UNITS TAB PO SCH (08:13)
[2019-10-19] MEDS: AMLODIPINE BESYLATE 5 MG TAB PO SCH (08:13)
[2019-10-19] MEDS: METOPROLOL TARTRATE 25 MG TAB PO SCH ×2 (08:13→20:11)
[2019-10-19] MEDS: ROSUVASTATIN CALCIUM 20 MG TAB PO SCH (08:14)
[2019-10-19] MEDS: FINASTERIDE 5 MG TAB PO SCH (08:14)
[2019-10-19] MEDS: lisinopriL 5 MG TAB PO SCH (08:14)
[2019-10-19] MEDS: PANTOprazole 40 MG TAB PO SCH (08:14)
[2019-10-19] MEDS: ASPIRIN 81 MG ECTAB PO SCH (08:14)
[2019-10-19 08:58] LABS: Basophils # (auto) 0.01 K/uL (0-0.2); Basophils % (auto) 0.1 %; Eosinophils # (auto) 0.24 K/uL (0-0.5); Eosinophils % (auto) 2.3 %; Hematocrit (blood only) 39.4 % (42-52); Hemoglobin 12.9 g/dL (14.0-18.0); Immature Granulocytes # (auto) 0.02 K/uL (0.00-0.02); Immature Granulocytes % (auto) 0.2 %; Lymphocytes # (auto) 1.13 K/uL (1.2-3.4); Mean Corpuscular Hgb Conc 32.7 g/dL (32-36); Mean Corpuscular Volume 88.5 fL (80-100); Mean Platelet Volume 10.3 fL (7.4-10.4); Monocytes # (auto) 0.65 K/uL (0.11-0.59); Monocytes % (auto) 6.3 %; Neutrophils # (auto) 8.24 K/uL (1.4-6.5); Neutrophils % (auto) 80.1 %; Platelet Count 169 K/uL (130-400); RDW Coefficient of Variation 13.6 % (11.5-14.5); RDW Standard Deviation 44.5 fL (36.4-46.3); Red Blood Count 4.45 M/uL (4.7-6.1); White Blood Count 10.29 K/uL (4.8-10.8)
[2019-10-19] MEDS: DOXYCYCLINE HYCLATE 100 MG in DEXTROSE 5% 100 ML IV SCH ×2 (09:10→21:24)
[2019-10-19 09:28] LABS: BUN Creatinine Ratio 22.8 (10-20); Creatinine Clr Calc Pharmacy 49.4 ml/min; Est GFR (African American) 62.9; Est GFR (Non-African American) 54.3; Magnesium 1.9 mg/dl (1.8-2.4); Potassium 3.9 mmol/L (3.5-5.1)
--- NOTE | 2019-10-19 09:58 | Cardiology Progress Note ---
Date of Service October 19, 2019 Assessment & Plan (1) Pneumonia: (2) H/O heart bypass surgery: (3) Troponin level elevated: Believe the patient may be volume overloaded, perhaps from all the IV medications and antibiotics. I will give him 20 mg of IV Lasix today. He will need to have some physical therapy to recover and I think he should stay in the hospital at least another 1 to 2 days. Subjective Patient was transferred from the ICU yesterday to a telemetry floor. He has no new cardiac complaints. Review of Systems Review of Systems: All systems reviewed & are unremarkable except as noted in HPI & below Nothing additional to add. Physical Exam Physical Exam: General: no acute distress and stated age Head: normocephalic, no masses, lesions, tenderness or abnormalities Eyes: conjunctiva are pink and non-injected, sclera clear Neck: supple, no adenopathy, no bruits, normal jugular venous pulse, no hepatojugular reflux Chest: normal shape and normal respiratory effort Lungs: Rales at the lung bases bilaterally. Cardiac Exam: - regular rate & rhythm, no murmurs gallops or rubs - normal S1, normal S2 Pulses: 2(+) throughout Abdomen: abdomen soft, non-tender, no abnormal masses and no hepatosplenomegaly Musculoskeletal: no gait disturbance, no joint inflammation, no deforming arthritis Extremities: no edema and no cyanosis Neuro: grossly normal exam Results & Data Vital Signs (Past 12 Hours) Vital Signs Temp Pulse Pulse Resp BP BP Pulse Ox 10/19/19 07:57 36.3 C L 65 19 130/62 91 10/19/19 03:43 36.7 C 64 20 115/65 92 10/19/19 00:09 36.7 C 60 18 116/58 L 91 10/19/19 00:00 68 Laboratory Results Laboratory Results - last 24 hr 10/18/19 10/19/19 10/19/19 11:47 08:21 08:21 WBC 10.29 RBC 4.45 L Hgb 12.9 L Hct 39.4 L MCV 88.5 MCH 29.0 MCHC 32.7 RDW Std Deviation 44.5 RDW Coeff of Joe 13.6 Plt Count 169 MPV 10.3 Immature Gran % (Auto) 0.2 Neut % (Auto) 80.1 Lymph % (Auto) 11.0 [place] % (Auto) 6.3 Eos % (Auto) 2.3 Baso % (Auto) 0.1 Immature Gran # (Auto) 0.02 Neut # (Auto) 8.24 H Lymph # (Auto) 1.13 L [place] # (Auto) 0.65 H Eos # (Auto) 0.24 Baso # (Auto) 0.01 Sodium 139 Potassium 3.9 Chloride 105 Carbon Dioxide 28 Anion Gap 5.0 BUN 28 H Creatinine 1.21 Est Cr Clr Drug Dosing 49.4 Est GFR ( Amer) 62.9 Est GFR (Non-Af Amer) 54.3 BUN/Creatinine Ratio 22.8 H Glucose 144 H Calcium 9.0 Magnesium 1.9 Procalcitonin 11.82 H Medications Administered Current Inpatient Medications Acetaminophen (Tylenol) 650 mg PO Q4H PRN PRN Reason: Pain or Fever Stop: 11/16/19 06:22 Amlodipine Besylate (Norvasc) 5 mg PO DAILY [facility] Stop: 11/16/19 08:59 Last Admin: 10/19/19 08:13 Dose: 5 mg Documented by: Aspirin (Ecotrin Ectab) 81 mg PO DAILY [facility] Stop: 11/16/19 08:59 Last Admin: 10/19/19 08:14 Dose: 81 mg Documented by: Finasteride (Proscar) 5 mg PO DAILY [facility] Stop: 11/16/19 08:59 Last Admin: 10/19/19 08:14 Dose: 5 mg Documented by: Ceftriaxone Sodium 2,000 mg/ (Dextrose) 70 mls @ 100 mls/hr IV Q24H [facility]; Pro tocol Stop: 10/24/19 09:41 Last Infusion: 10/19/19 08:58 Dose: Infused Documented by: Doxycycline Hyclate 100 mg/ (Dextrose) 110 mls @ 50 mls/hr IV Q12H [facility] Stop: 10/25/19 09:59 Last Admin: 10/19/19 09:10 Dose: 50 mls/hr Documented by: Furosemide 20 mg/ Syringe 2 mls @ 4 mls/min IV ONE ONE Stop: 10/19/19 09:53 Lisinopril (Zestril) 5 mg PO DAILY [facility] Stop: 11/16/19 08:59 Last Admin: 10/19/19 08:14 Dose: 5 mg Documented by: Metoprolol Tartrate (Lopressor) 12.5 mg PO BID [facility] Stop: 11/16/19 08:59 Last Admin: 10/19/19 08:13 Dose: 12.5 mg Documented by: Mirtazapine (Remeron) 30 mg PO HS [facility] Stop: 11/16/19 20:59 Last Admin: 10/18/19 21:05 Dose: 30 mg Documented by: Nitroglycerin (Nitrostat) 0.4 mg SL UD PRN PRN Reason: Chest Pain Stop: 11/16/19 06:22 Ondansetron HCl (Zofran) 4 mg IV Q6H PRN PRN Reason: Nausea Stop: 11/16/19 06:22 Pantoprazole Sodium (Protonix) 40 mg PO DAILY [facility] Stop: 11/16/19 08:59 Last Admin: 10/19/19 08:14 Dose: 40 mg Documented by: Rosuvastatin Calcium (Crestor) 20 mg PO DAILY [facility] Stop: 11/16/19 08:59 Last Admin: 10/19/19 08:14 Dose: 20 mg Documented by: Vitamin D (Vitamin D3) 1,000 units PO DAILY [facility] Stop: 11/16/19 08:59 Last Admin: 10/19/19 08:13 Dose: 1,000 units Documented by:
[2019-10-19] MEDS ORDERED: FUROSEMIDE 20 MG in SYRINGE 0 ML IV ONE (10:30)
--- NOTE | 2019-10-19 12:22 | Hospitalist Progress Note ---
Date of Service October 19, 2019 Assessment & Plan (1) Pneumonia: Admitted with cough and chest pain Chest x-ray showed right lower lobe infiltration with increasing white count Blood culture has been taken Started on intravenous ceftriaxone and doxycycline Clinically better White count has improved We will get PT and OT evaluation before discharge home tomorrow (2) Non-ST elevation [place] (NSTEMI): Noted to have increasing troponin Echocardiogram showed-normal LV chamber size with mild concentric LVH, sigmoid appearing septum. Normal LV function with EF of 60- 65%, moderate hypokinesis of the basal inferior wall associated with thinning to suggest chronicity, grade 1 diastolic dysfunction, mild AR mild TR and mild MR with severe L A enlargement Troponin level has been decreasing Patient remains asymptomatic Appreciate cardiology input and recommendation Denies any cardiac symptoms Minimal shortness of breath Likely secondary to fluid overload Received small dose of intravenous Lasix today Will change antibiotics to oral on discharge (3) H/O heart bypass surgery: As above Continue current medications for high blood pressure Subjective 10/18 Patient was seen and examined in ICU This 83-year-old male with past medical history significant for CAD, status post CABG about 16 years ago, history of hyperlipidemia, hypertension, GERD, history of urethral stricture, history of retention of urine, history of anxiety, presents with chest pain. He has been feeling a lot better since admission Complaints of cough and shortness of breath on exertion but no chest pain 10/19 The patient was seen and examined in telemetry unit He has been feeling a lot better but remains generally weak and lethargic He wants to go home but seems to be not yet ready Review of Systems Review of Systems: All systems reviewed and are unremarkable except as noted below Respiratory: + cough and + dyspnea on exertion Physical Exam Physical Exam: Lying in bed with minimal discomfort due to shortness of breath Constitutional: well developed and well nourished Eyes: PERRL, conjunctivae normal, anicteric sclerae ENMT: external ear and nose normal, oropharynx normal Neck: trachea midline, no thyromegaly Respiratory: normal respiratory effort; no respiratory distress Auscultation: + diminished lung sounds (Right lung with crackles at the base) and + crackles (Minimal crackles at the bases) Cardiovascular: Rate/Rhythm: regular rate and regular rhythm Heart Sounds: no murmur Gastrointestinal (Abdomen): Inspection/Auscultation: abdomen normal to inspection and normal bowel sounds; abdomen not distended Musculoskeletal: No acute arthritis in any joints Lymphatic: no cervical or axillary lymphadenopathy Results & Data Vital Signs (Past 12 Hours) Vital Signs Temp Pulse Resp BP BP Pulse Ox 10/19/19 11:10 36.3 C L 63 22 145/74 H 94 10/19/19 07:57 36.3 C L 65 19 130/62 91 10/19/19 03:43 36.7 C 64 20 115/65 92 Laboratory Results Short CBC 10/19/19 Range/Units 08:21 WBC 10.29 (4.8-10.8) K/uL Hgb 12.9 L (14.0-18.0) g/dL Hct 39.4 L (42-52) % Plt Count 169 (130-400) K/uL BMP 10/19/19 08:21 Sodium 139 Potassium 3.9 Chloride 105 Carbon Dioxide 28 BUN 28 H Creatinine 1.21 Glucose 144 H Calcium 9.0 Medications Administered Current Inpatient Medications Acetaminophen (Tylenol) 650 mg PO Q4H PRN PRN Reason: Pain or Fever Stop: 11/16/19 06:22 Amlodipine Besylate (Norvasc) 5 mg PO DAILY [facility] Stop: 11/16/19 08:59 Last Admin: 10/19/19 08:13 Dose: 5 mg Documented by: Aspirin (Ecotrin Ectab) 81 mg PO DAILY [facility] Stop: 11/16/19 08:59 Last Admin: 10/19/19 08:14 Dose: 81 mg Documented by: Finasteride (Proscar) 5 mg PO DAILY [facility] Stop: 11/16/19 08:59 Last Admin: 10/19/19 08:14 Dose: 5 mg Documented by: Ceftriaxone Sodium 2,000 mg/ (Dextrose) 70 mls @ 100 mls/hr IV Q24H [facility]; Protocol Stop: 10/24/19 09:41 Last Infusion: 10/19/19 08:58 Dose: Infused Documented by: Doxycycline Hyclate 100 mg/ (Dextrose) 110 mls @ 50 mls/hr IV Q12H [facility] Stop: 10/25/19 09:59 Last Infusion: 10/19/19 11:25 Dose: Infused Documented by: Lisinopril (Zestril) 5 mg PO DAILY [facility] Stop: 11/16/19 08:59 Last Admin: 10/19/19 08:14 Dose: 5 mg Documented by: Metoprolol Tartrate (Lopressor) 12.5 mg PO BID [facility] Stop: 11/16/19 08:59 Last Admin: 10/19/19 08:13 Dose: 12.5 mg Documented by: Mirtazapine (Remeron) 30 mg PO HS [facility] Stop: 11/16/19 20:59 Last Admin: 10/18/19 21:05 Dose: 30 mg Documented by: Nitroglycerin (Nitrostat) 0.4 mg SL UD PRN PRN Reason: Chest Pain Stop: 11/16/19 06:22 Ondansetron HCl (Zofran) 4 mg IV Q6H PRN PRN Reason: Nausea Stop: 11/16/19 06:22 Pantoprazole Sodium (Protonix) 40 mg PO DAILY [facility] Stop: 11/16/19 08:59 Last Admin: 10/19/19 08:14 Dose: 40 mg Documented by: Rosuvastatin Calcium (Crestor) 20 mg PO DAILY [facility] Stop: 11/16/19 08:59 Last Admin: 10/19/19 08:14 Dose: 20 mg Documented by: Vitamin D (Vitamin D3) 1,000 units PO DAILY [facility] Stop: 11/16/19 08:59 Last Admin: 10/19/19 08:13 Dose: 1,000 units Documented by:
[2019-10-19] MEDS: MIRTAZAPINE TAB 15 MG TAB PO SCH (20:12)
[2019-10-20] MEDS: AMLODIPINE BESYLATE 5 MG TAB PO SCH (08:47)
[2019-10-20] MEDS: METOPROLOL TARTRATE 25 MG TAB PO SCH (08:47)
[2019-10-20] MEDS: ROSUVASTATIN CALCIUM 20 MG TAB PO SCH (08:47)
[2019-10-20] MEDS: lisinopriL 5 MG TAB PO SCH (08:47)
[2019-10-20] MEDS: CHOLECALCIFEROL 1,000 UNITS TAB PO SCH (08:47)
[2019-10-20] MEDS: PANTOprazole 40 MG TAB PO SCH (08:47)
[2019-10-20] MEDS: ASPIRIN 81 MG ECTAB PO SCH (08:47)
[2019-10-20] MEDS: FINASTERIDE 5 MG TAB PO SCH (08:47)
[2019-10-20] MEDS: cefTRIAXone SODIUM 2,000 MG in DEXTROSE 5% 50 ML IV SCH (09:12)
[2019-10-20] MEDS: DOXYCYCLINE HYCLATE 100 MG in DEXTROSE 5% 100 ML IV SCH (10:09)
--- NOTE | 2019-10-20 11:36 | Hospitalist Progress Note ---
Date of Service October 20, 2019 Assessment & Plan (1) Pneumonia: Admitted with cough and chest pain Chest x-ray showed right lower lobe infiltration with increasing white count Blood culture has been taken Started on intravenous ceftriaxone and doxycycline White count has improved We will get PT and OT evaluation before discharge home tomorrow Clinically a lot better today We will change antibiotic to oral Keflex and doxycycline We will get to do steps O2 saturation before discharge this afternoon (2) Non-ST elevation [place] (NSTEMI): Noted to have increasing troponin Echocardiogram showed-normal LV chamber size with mild concentric LVH, sigmoid appearing septum. Normal LV function with EF of 60- 65%, moderate hypokinesis of the basal inferior wall associated with thinning to suggest chronicity, grade 1 diastolic dysfunction, mild AR mild TR and mild MR with severe L A enlargement Troponin level has been decreasing Patient remains asymptomatic Appreciate cardiology input and recommendation Denies any cardiac symptoms Remains asymptomatic Minimal shortness of breath Likely secondary to fluid overload Received small dose of intravenous Lasix today Will change antibiotics to oral on discharge As above (3) H/O heart bypass surgery: As above Continue current medications for high blood pressure Discussed with the son He will be discharged this afternoon Subjective 10/18 Patient was seen and examined in ICU This 83-year-old male with past medical history significant for CAD, status post CABG about 16 years ago, history of hyperlipidemia, hypertension, GERD, history of urethral stricture, history of retention of urine, history of anxiety, presents with chest pain. He has been feeling a lot better since admission Complaints of cough and shortness of breath on exertion but no chest pain 10/19 The patient was seen and examined in telemetry unit He has been feeling a lot better but remains generally weak and lethargic He wants to go home but seems to be not yet ready 10/20 Patient was seen and examined in medical floor Denies any symptoms as of this morning and wants to go home Minimal shortness of breath with exertion as before Review of Systems Review of Systems: All systems reviewed and are unremarkable except as noted below Respiratory: + dyspnea on exertion Physical Exam Physical Exam: Lying in bed comfortably without any symptoms Constitutional: well developed and well nourished Eyes: PERRL, conjunctivae normal, anicteric sclerae ENMT: external ear and nose normal, oropharynx normal Neck: trachea midline, no thyromegaly Respiratory: normal respiratory effort; no respiratory distress Auscultation: + diminished lung sounds and + crackles (Minimal crackles at the right base) Cardiovascular: Rate/Rhythm: regular rate and regular rhythm Heart Sounds: no murmur Gastrointestinal (Abdomen): Inspection/Auscultation: abdomen normal to inspection and normal bowel sounds; abdomen not distended Lymphatic: no cervical or axillary lymphadenopathy Results & Data Vital Signs (Past 12 Hours) Vital Signs Temp Pulse Pulse Resp BP BP Pulse Ox 10/20/19 08:00 59 L 10/20/19 07:48 36.8 C 72 18 129/81 95 10/20/19 04:09 36.4 C L 54 L 20 116/65 90 10/19/19 23:57 36.5 C 57 L 18 103/62 91 Medications Administered Current Inpatient Medications Acetaminophen (Tylenol) 650 mg PO Q4H PRN PRN Reason: Pain or Fever Stop: 11/16/19 06:22 Amlodipine Besylate (Norvasc) 5 mg PO DAILY [facility] Stop: 11/16/19 08:59 Last Admin: 10/20/19 08:47 Dose: 5 mg Documented by: Aspirin (Ecotrin Ectab) 81 mg PO DAILY [facility] Stop: 11/16/19 08:59 Last Admin: 10/20/19 08:47 Dose: 81 mg Documented by: Cephalexin HCl (Keflex) 500 mg PO TID [facility] Stop: 10/27/19 13:59 Doxycycline Hyclate (Vibramycin) 100 mg PO BID [facility] Stop: 10/27/19 20:59 Finasteride (Proscar) 5 mg PO DAILY [facility] Stop: 11/16/19 08:59 Last Admin: 10/20/19 08:47 Dose: 5 mg Documented by: Lisinopril (Zestril) 5 mg PO DAILY [facility] Stop: 11/16/19 08:59 Last Admin: 10/20/19 08:47 Dose: 5 mg Documented by: Metoprolol Tartrate (Lopressor) 12.5 mg PO BID [facility] Stop: 11/16/19 08:59 Last Admin: 10/20/19 08:47 Dose: 12.5 mg Documented by: Mirtazapine (Remeron) 30 mg PO HS [facility] Stop: 11/16/19 20:59 Last Admin: 10/19/19 20:12 Dose: 30 mg Documented by: Nitroglycerin (Nitrostat) 0.4 mg SL UD PRN PRN Reason: Chest Pain Stop: 11/16/19 06:22 Ondansetron HCl (Zofran) 4 mg IV Q6H PRN PRN Reason: Nausea Stop: 11/16/19 06:22 Pantoprazole Sodium (Protonix) 40 mg PO DAILY [facility] Stop: 11/16/19 08:59 Last Admin: 10/20/19 08:47 Dose: 40 mg Documented by: Rosuvastatin Calcium (Crestor) 20 mg PO DAILY [facility] Stop: 11/16/19 08:59 Last Admin: 10/20/19 08:47 Dose: 20 mg Documented by: Vitamin D (Vitamin D3) 1,000 units PO DAILY [facility] Stop: 11/16/19 08:59 Last Admin: 10/20/19 08:47 Dose: 1,000 units Documented by:
[2019-10-20] MEDS ORDERED: cephALEXin 500 MG CAP PO SCH (14:00)
[2019-10-20] MEDS ORDERED: DOXYCYCLINE HYCLATE 100 MG CAP PO SCH (21:00)
[2019-10-20] MEDS ORDERED: CEFDINIR 300 MG CAP PO SCH (21:00)
--- NOTE | 2019-10-21 08:13 | Discharge Summary ---
Date of Service October 21, 2019 Admission HPI Per Admitting Provider DICTATED BY: Jacinto Gonsales MD DATE OF ADMISSION: 10/17/2019 CHIEF COMPLAINT: Chest pain. HISTORY OF PRESENT ILLNESS: This 83-year-old male with past medical history significant for CAD, status post CABG about 16 years ago, history of hyperlipidemia, hypertension, GERD, history of urethral stricture, history of retention of urine, history of anxiety, presents with chest pain. The patient lives with , complained of chest pain yesterday in the evening around 7 o'clock, but did not do anything, but in the middle of the night, he woke up to go into the bathroom and came in had pain in both legs which is chronic pain, but then he developed chest pain, and was some shortness of breath. He called his and brought him to the hospital. Here, EKG shows ST depression in anterolateral leads and mild elevation of troponin. Received aspirin and started on IV heparin. Currently, pain is resolved. Resting comfortably, very hard of hearing. Denies any sweating, felt somewhat hot in the ER, he is drinking water to help him to cool. Denies any headache. He says that he feels dizzy when he gets up from the bed. No cough, no fevers, no nausea, no abdominal pain. Normal bowel and bladder movements. No swelling in the legs, no rash. Currently resting comfortably and hemodynamically stable. Family in the room. Admission Exam Per Admitting Provider GENERAL: The patient is old and frail, not in acute distress. Hard of hearing. VITAL SIGNS: Temperature 36.9, pulse 83, respiratory rate 24, blood pressure 103/66, oxygen 94% on room air. HEENT: No pallor. Pupils equal, round, reactive to light. NECK: No JVD, no neck masses, no carotid bruits. CARDIOVASCULAR: S1, S2, regular rate and rhythm, no murmur, no gallop. RESPIRATORY SYSTEM: Normal AP diameter. No accessory muscle use. No wheezing, no crackles. ABDOMEN: Soft, bowel sounds present, nontender. No distention. CENTRAL NERVOUS SYSTEM: Alert and awake and oriented. Hard of hearing. Moves extremities. Obeys simple commands. EXTREMITIES: No edema, no erythema. Principal Diagnosis Right lower lobe pneumonia, non-ST elevation [place], history of CAD with status post CABG Discharge Exam Constitutional well developed and well nourished Eyes PERRL, conjunctivae normal, anicteric sclerae ENMT external ear and nose normal, oropharynx normal Neck trachea midline, no thyromegaly Respiratory normal respiratory effort; no respiratory distress Auscultation: + diminished lung sounds and + crackles (Minimal crackles at the right base) Cardiovascular Rate/Rhythm: regular rate and regular rhythm Heart Sounds: no murmur Gastrointestinal (Abdomen) Inspection/Auscultation: abdomen normal to inspection and normal bowel sounds; abdomen not distended Lymphatic no cervical or axillary lymphadenopathy Discharge Data Allergies Allergy/AdvReac Type Severity Reaction Status Date / Time No Known Allergies Allergy Verified 10/17/19 03:40 Consultations 10/17/19 04:21 ED Decision to Admit Stat 10/17/19 06:23 Consult Case Management - Discharge Planning Routine 10/17/19 08:00 Consult Cardiology Routine Hospital Course (1) Pneumonia: Admitted with cough and chest pain Chest x-ray showed right lower lobe infiltration with increasing white count Blood culture has been taken Started on intravenous ceftriaxone and doxycycline White count has improved We will get PT and OT evaluation before discharge home tomorrow Clinically a lot better today We will change antibiotic to oral Keflex and doxycycline We will get to do steps O2 saturation before discharge this afternoon (2) Non-ST elevation [place] (NSTEMI): Noted to have increasing troponin Echocardiogram showed-normal LV chamber size with mild concentric LVH, sigmoid appearing septum. Normal LV function with EF of 60- 65%, moderate hypokinesis of the basal inferior wall associated with thinning to suggest chronicity, grade 1 diastolic dysfunction, mild AR mild TR and mild MR with severe L A enlargement Troponin level has been decreasing Patient remains asymptomatic Appreciate cardiology input and recommendation Denies any cardiac symptoms Remains asymptomatic Minimal shortness of breath Likely secondary to fluid overload Received small dose of intravenous Lasix today Will change antibiotics to oral on discharge As above (3) H/O heart bypass surgery: As above Continue current medications for high blood pressure Discussed with the son He will be discharged this afternoon Total Time Total Time Spent Total Time Spent (In Minutes): 35 minutes Total Time Includes: Examination of the Patient, Discharge Planning, Medication Reconciliation and Communication With Other Providers Discharge Plan Discharge Items Patient Disposition: Home - Self-Care Reason For Visit: CHEST PAIN Discharge Diagnosis: Right lower lobe pneumonia, non-ST elevation TN, history of CAD with status post CABG Condition on Discharge: Good Activity: Resume your previous activity Non-emergency contact: Primary Care Provider Call non-emergency contact if: you have any medication questions Follow-up/Referrals: Krystal Thomas DO [Primary Care Provider] - 10/27/19 10:45 am (Your appointment is with Dr. Lane. ) Diet: Heart Healthy Addtl Attending Provider Instructions: Please finish the course of antibiotic Take precaution to avoid falls Pending Studies at Discharge: No Stand-Alone Forms: My [facility], Smoking Cessation Medications and DC Order Prescriptions: New cefdinir 300 mg Capsule 300 mg PO BID Qty: 10 RF: 0 doxycycline hyclate 100 mg Capsule 100 mg PO BID Qty: 10 RF: 0 Lactinex 1 million cell tablet,chewable 1 tab PO BID Qty: 30 RF: 0 Continued amlodipine 5 mg Tablet 5 mg PO DAILY RF: 0 mirtazapine 30 mg tablet 30 mg PO HS RF: 0 aspirin [Aspirin Childrens] 81 mg Tablet,Chewable 81 mg PO DAILY RF: 0 lisinopril 5 mg Tablet 5 mg PO DAILY RF: 0 finasteride 5 mg Tablet 5 mg PO DAILY RF: 0 rosuvastatin 40 mg Tablet 20 mg PO DAILY RF: 0 metoprolol tartrate 25 mg Tablet 12.5 mg PO DAILY RF: 0 omeprazole 20 mg Tablet,Delayed Release (Dr/Ec) 20 mg PO DAILY RF: 0 cholecalciferol (vitamin D3) [Vitamin D3] 1,000 unit Tablet,Chewable 1,000 unit PO DAILY RF: 0 Discharge Orders: Discharge Order (Routine); Ordered 10/20/19 Ordered By: Obie Gates/Other Patient Handouts: A1C Admission Data Admit Date/Time: 10/17/19 05:09 Attending Provider: Obie Bailey Admit Provider: Jacinto Gonsales Primary Care Provider: Krystal Thomas Other Providers: Jacinto Gonsales ; Stuart Gautam Other Interventions: Discharge Summary Assessment (RN) Last Done: 10/20/19 13:30 DC Date/Time DO NOT enter until pt leaves facility: 10/20/19 14:34
== END 2019-10-20 14:34 | disposition home or self-care (01) | DRG 280 ==
LOC: ED 03:08 → 1E 05:09 → 2S 10-18 14:24